=== PATIENT | female | born 1945 | race Two or more races ===

== ENCOUNTER 2019-09-29 11:15 | Emergency (ER) | payer OTHER ==
[~2019-09-29] VITALS: Ht 157.5 cm; Wt 71.7 kg
[~2019-09-29 11:15] MED LIST: VASOTEC10 MG
[2019-09-29] MEDS ORDERED: LEVOXYL25 MCG (11:25)
[2019-09-29] MEDS ORDERED: LEVAQUIN500 MG PO (15:57)
== END 2019-09-29 16:06 | disposition home or self-care (01) ==
LOC: ER 11:15
DX: B34.9 Viral infection, unspecified (principal); E06.1 Subacute thyroiditis; Z03.818 Encounter for observation for suspected exposure to other biological agents ruled out; R07.0 Pain in throat

== ENCOUNTER → 2019-10-02 07:02 | Outpatient (CLI) | payer OTHER ==
[~2019-10-02 07:02] MED LIST changes: +LEVAQUIN500 MG PO; +LEVOXYL25 MCG
== END | disposition home or self-care (01) ==
LOC: LAB 07:02
PROVIDERS: ATTEND General Practice
DX: E06.0 Acute thyroiditis (principal); E78.49 Other hyperlipidemia; E55.9 Vitamin D deficiency, unspecified

== ENCOUNTER 2019-10-05 10:35 | Outpatient (CLI) | payer OTHER | END 2019-10-05 10:43 | disposition home or self-care (01) | LOC: SONOGRAMA 10:35 → MAMO-SONO 10-07 08:15 | PROVIDERS: ATTEND General Practice | DX: E06.0 Acute thyroiditis (principal) ==

== ENCOUNTER 2019-11-25 11:06 | Outpatient (CLI) | payer OTHER | END 2019-11-25 15:00 | disposition home or self-care (01) | LOC: LAB 11:06 | PROVIDERS: ATTEND Internal Medicine Cardiovascular Disease | DX: E03.8 Other specified hypothyroidism (principal); I10 Essential (primary) hypertension; E11.9 Type 2 diabetes mellitus without complications; E78.2 Mixed hyperlipidemia; Z12.11 Encounter for screening for malignant neoplasm of colon ==

== ENCOUNTER → 2019-11-30 10:40 | Outpatient (CLI) | payer OTHER | END | disposition home or self-care (01) | LOC: LAB 10:40 | PROVIDERS: ATTEND Internal Medicine Cardiovascular Disease | DX: E11.9 Type 2 diabetes mellitus without complications (principal); E78.2 Mixed hyperlipidemia; I10 Essential (primary) hypertension; E03.8 Other specified hypothyroidism; Z12.11 Encounter for screening for malignant neoplasm of colon ==

== ENCOUNTER 2020-01-14 09:30 | Outpatient (CLI) | payer OTHER | END 2020-01-14 09:37 | disposition home or self-care (01) | LOC: LAB 09:30 | PROVIDERS: ATTEND Internal Medicine Cardiovascular Disease | DX: E03.8 Other specified hypothyroidism (principal); E78.2 Mixed hyperlipidemia ==

== ENCOUNTER → 2020-03-23 08:59 | Outpatient (CLI) | payer OTHER | END | disposition home or self-care (01) | LOC: LAB 08:59 | PROVIDERS: ATTEND Internal Medicine Cardiovascular Disease | DX: E03.8 Other specified hypothyroidism (principal); M12.812 Other specific arthropathies, not elsewhere classified, left shoulder; J44.9 Chronic obstructive pulmonary disease, unspecified; I10 Essential (primary) hypertension; E11.9 Type 2 diabetes mellitus without complications; E78.2 Mixed hyperlipidemia ==

== ENCOUNTER → 2020-03-28 | Outpatient (CLI) | payer OTHER | END | disposition home or self-care (01) | LOC: MAMO-SONO 09:27 | PROVIDERS: ATTEND Internal Medicine Cardiovascular Disease | DX: M12.812 Other specific arthropathies, not elsewhere classified, left shoulder (principal); N63.11 Unspecified lump in the right breast, upper outer quadrant ==

== ENCOUNTER 2020-03-29 09:18 | Outpatient (CLI) | payer OTHER | END 2020-03-29 10:41 | disposition home or self-care (01) | LOC: SONOGRAMA 09:18 | PROVIDERS: ATTEND Internal Medicine Cardiovascular Disease | DX: M12.812 Other specific arthropathies, not elsewhere classified, left shoulder (principal) ==

== ENCOUNTER 2020-11-29 10:21 | Outpatient (CLI) | payer OTHER | END 2020-11-29 10:26 | disposition home or self-care (01) | LOC: RAD 10:21 | PROVIDERS: ATTEND General Practice | DX: M51.37 Other intervertebral disc degeneration, lumbosacral region (principal); M54.5 Low back pain ==

== ENCOUNTER → 2020-12-26 | Outpatient (CLI) | payer OTHER | END | disposition home or self-care (01) | LOC: NUCLEAR 13:55 | PROVIDERS: ATTEND General Practice | DX: M81.0 Age-related osteoporosis without current pathological fracture (principal) ==

== ENCOUNTER 2021-04-27 10:29 | Outpatient (CLI) | payer OTHER | END 2021-04-27 10:36 | disposition home or self-care (01) | LOC: LAB 10:29 | PROVIDERS: ATTEND General Practice | DX: D50.0 Iron deficiency anemia secondary to blood loss (chronic) (principal); N39.0 Urinary tract infection, site not specified; B96.29 Other Escherichia coli [E. coli] as the cause of diseases classified elsewhere; E11.21 Type 2 diabetes mellitus with diabetic nephropathy; I10 Essential (primary) hypertension; E03.4 Atrophy of thyroid (acquired); E78.2 Mixed hyperlipidemia; K62.5 Hemorrhage of anus and rectum; R10.84 Generalized abdominal pain; I48.0 Paroxysmal atrial fibrillation; A63.0 Anogenital (venereal) warts ==

== ENCOUNTER 2021-04-27 11:43 | Outpatient (CLI) | payer OTHER | END 2021-04-27 11:46 | disposition home or self-care (01) | LOC: RAD 11:43 | PROVIDERS: ATTEND General Practice | DX: M19.90 Unspecified osteoarthritis, unspecified site (principal) ==

== ENCOUNTER 2021-05-25 12:01 | Outpatient (CLI) | payer OTHER | END 2021-05-25 12:06 | disposition home or self-care (01) | LOC: RAD 12:01 | PROVIDERS: ATTEND Chiropractor | DX: M99.01 Segmental and somatic dysfunction of cervical region (principal); M99.02 Segmental and somatic dysfunction of thoracic region; M99.03 Segmental and somatic dysfunction of lumbar region; M99.05 Segmental and somatic dysfunction of pelvic region ==

== ENCOUNTER 2021-06-01 11:30 | Outpatient (CLI) | payer OTHER | END 2021-06-01 11:36 | disposition home or self-care (01) | LOC: MAMO-SONO 11:30 | PROVIDERS: ATTEND General Practice | DX: Z12.31 Encounter for screening mammogram for malignant neoplasm of breast (principal) ==

== ENCOUNTER 2021-06-19 11:16 | Outpatient (CLI) | payer OTHER | END 2021-06-19 11:22 | disposition home or self-care (01) | LOC: SONOGRAMA 11:16 | PROVIDERS: ATTEND General Practice | DX: N63.0 Unspecified lump in unspecified breast (principal) ==

== ENCOUNTER 2021-07-08 11:24 | Emergency (ER) | payer OTHER ==
[~2021-07-08] VITALS: Ht 157.5 cm; Wt 67.1 kg
[2021-07-08] MEDS ORDERED: SERTRALINE HCL50 MG PO (11:57)
[2021-07-08] MEDS ORDERED: LOSARTAN POTASS50 MG PO (11:57)
[2021-07-08] MEDS ORDERED: NAPROXEN500 MG PO (11:57)
[2021-07-08] MEDS ORDERED: TIZANIDINE HCL4 MG PO (11:57)
== END 2021-07-08 18:19 | disposition home or self-care (01) ==
LOC: ER 11:24
DX: K57.92 Diverticulitis of intestine, part unspecified, without perforation or abscess without bleeding (principal); Z88.0 Allergy status to penicillin

== ENCOUNTER 2021-08-16 13:32 | Emergency (ER) | payer OTHER ==
[~2021-08-16] VITALS: Ht 154.9 cm; Wt 71.7 kg
[~2021-08-16 13:32] MED LIST changes: +LOSARTAN POTASS50 MG PO; +NAPROXEN500 MG PO; +SERTRALINE HCL50 MG PO; +TIZANIDINE HCL4 MG PO
== END 2021-08-16 20:38 | disposition home or self-care (01) ==
LOC: ER 13:32
DX: K57.32 Diverticulitis of large intestine without perforation or abscess without bleeding (principal); Z88.0 Allergy status to penicillin; I10 Essential (primary) hypertension; E78.00 Pure hypercholesterolemia, unspecified

== ENCOUNTER 2021-12-12 09:55 | Outpatient (CLI) | payer OTHER | END 2021-12-12 15:00 | disposition home or self-care (01) | LOC: LAB 09:55 | PROVIDERS: ATTEND General Practice | DX: D50.0 Iron deficiency anemia secondary to blood loss (chronic) (principal); N39.0 Urinary tract infection, site not specified; B96.29 Other Escherichia coli [E. coli] as the cause of diseases classified elsewhere; E11.21 Type 2 diabetes mellitus with diabetic nephropathy; I10 Essential (primary) hypertension; E03.4 Atrophy of thyroid (acquired); E78.2 Mixed hyperlipidemia; K62.5 Hemorrhage of anus and rectum; R10.84 Generalized abdominal pain; I48.0 Paroxysmal atrial fibrillation; A63.0 Anogenital (venereal) warts ==

== ENCOUNTER 2021-12-12 10:54 | Outpatient (CLI) | payer OTHER | END 2021-12-12 11:07 | disposition home or self-care (01) | LOC: RAD 10:54 | PROVIDERS: ATTEND General Practice | DX: M19.90 Unspecified osteoarthritis, unspecified site (principal) ==

== ENCOUNTER 2021-12-19 09:33 | Outpatient (CLI) | payer OTHER | END 2021-12-19 09:35 | disposition home or self-care (01) | LOC: NUCLEAR 09:33 | PROVIDERS: ATTEND Internal Medicine Cardiovascular Disease | DX: I11.9 Hypertensive heart disease without heart failure (principal); N06.2 Isolated proteinuria with diffuse membranous glomerulonephritis; Z88.0 Allergy status to penicillin ==

== ENCOUNTER 2022-01-26 10:45 | Outpatient (CLI) | payer OTHER | END 2022-01-26 10:48 | disposition home or self-care (01) | LOC: NUCLEAR 10:45 | PROVIDERS: ATTEND Internal Medicine Cardiovascular Disease | DX: I65.29 Occlusion and stenosis of unspecified carotid artery (principal); Z88.0 Allergy status to penicillin ==

== ENCOUNTER 2022-08-16 11:50 | Outpatient (CLI) | payer OTHER | END 2022-08-16 11:57 | disposition home or self-care (01) | LOC: RAD 11:50 | DX: R06.02 Shortness of breath (principal); J45.30 Mild persistent asthma, uncomplicated ==

== ENCOUNTER 2022-08-30 10:42 | Outpatient (CLI) | payer OTHER | END 2022-08-30 10:51 | disposition home or self-care (01) | LOC: RAD 10:42 | DX: M19.90 Unspecified osteoarthritis, unspecified site (principal) ==

== ENCOUNTER 2022-10-26 10:02 | Outpatient (CLI) | payer OTHER | END 2022-10-26 10:07 | disposition home or self-care (01) | LOC: SONOGRAMA 10:02 | DX: M75.81 Other shoulder lesions, right shoulder (principal); M75.82 Other shoulder lesions, left shoulder ==

== ENCOUNTER 2023-01-22 10:19 | Outpatient (CLI) | payer OTHER | END 2023-01-22 10:26 | disposition home or self-care (01) | LOC: SONOGRAMA 10:19 | DX: R22.1 Localized swelling, mass and lump, neck (principal); E03.9 Hypothyroidism, unspecified; Z88.0 Allergy status to penicillin ==

== ENCOUNTER 2023-01-28 09:30 | Outpatient (CLI) | payer OTHER ==
[2023-01-28 10:06] LABS: PH,URINE 5.5 (5.0-8.0); URINE APPEARANCE Clear; URINE BILIRRUBIN Negative (NEGATIVE); URINE BLOOD Negative; URINE COLOR Yellow; URINE GLUCOSE Negative (NEGATIVE); URINE LEUKOCYTE Moderate; URINE NITRATE Negative; URINE PROTEIN Negative (NEGATIVE); URINE UROBILINOGEN 0.2 E.U./dl
[2023-01-28 10:07] LABS: URINE BACTERIA 30.2 uL (0.0-1933); URINE EPITHELIAL CELLS 7.5 uL (0.0-38.8); URINE RBC 8.4 uL (0.0-20.8); URINE WBC 11.2 uL (0.0-23.2)
[2023-01-28 10:23] LABS: HEMATOCRIT 43.5 % (36.0-45.00); HEMOGLOBIN 14.5 g/dL (12.0-15.00); MEAN CORPUSCULAR HEMOGLOBIN 28.9 pg (27.00-32.0); MEAN CORPUSCULAR HGB CONC 33.3 g/dl (32.0-36.0); PLATELET COUNT 249 K/uL (150-450)
[2023-01-28 10:59] LABS: ALBUMIN 3.8 gm/dL (3.4-5.0); BILIRUBIN TOTAL 0.58 mg/dL (0.3-1.2); CALCIUM 9.4 mg/dL (8.5-10.1); CHOL HDL RATIO 3.6 (0-5.0); CREATININE SERUM 0.77 mg/dL (0.55-1.02); GFR 73.08; POTASSIUM 4.18 mEq/L (3.5-5.1); TOTAL PROTEIN 6.8 gm/dL (6.4-8.2); TSH 2.26 uIU/mL (0.358-3.74)
== END 2023-01-28 09:34 | disposition home or self-care (01) ==
LOC: LAB 09:30
PROVIDERS: ATTEND General Practice
DX: N39.0 Urinary tract infection, site not specified (principal); E11.21 Type 2 diabetes mellitus with diabetic nephropathy; I10 Essential (primary) hypertension; E03.4 Atrophy of thyroid (acquired); E78.2 Mixed hyperlipidemia; K62.5 Hemorrhage of anus and rectum; R10.84 Generalized abdominal pain; I48.0 Paroxysmal atrial fibrillation; D68.9 Coagulation defect, unspecified; A63.0 Anogenital (venereal) warts; Z88.0 Allergy status to penicillin

== ENCOUNTER 2023-02-05 07:18 | Outpatient (CLI) | payer OTHER | END 2023-02-05 07:19 | disposition home or self-care (01) | LOC: NUCLEAR 07:18 | PROVIDERS: ATTEND Internal Medicine Cardiovascular Disease | DX: I20.9 Angina pectoris, unspecified (principal); M81.0 Age-related osteoporosis without current pathological fracture | CPT/HCPCS: 78452; 93017; A9500; J0153 ==

== ENCOUNTER → 2023-06-18 09:06 | Outpatient (CLI) | payer OTHER ==
[2023-06-18 09:39] LABS: PH,URINE 5.5 (5.0-8.0); URINE APPEARANCE Clear; URINE BILIRRUBIN Negative (NEGATIVE); URINE BLOOD Negative; URINE COLOR Yellow; URINE GLUCOSE Negative (NEGATIVE); URINE LEUKOCYTE Negative; URINE NITRATE Negative; URINE PROTEIN Negative (NEGATIVE); URINE UROBILINOGEN 0.2 E.U./dl
[2023-06-18 09:43] LABS: URINE EPITHELIAL CELLS 1.8 uL (0.0-38.8); URINE RBC 3.3 uL (0.0-20.8)
[2023-06-18 09:46] LABS: URINE BACTERIA 2.5 uL (0.0-1933); URINE WBC 0.9 uL (0.0-23.2)
[2023-06-18 09:51] LABS: HEMATOCRIT 39.4 % (36.0-45.00); HEMOGLOBIN 13.7 g/dL (12.0-15.00); MEAN CELL VOLUME 84.4 fL (80.00-100.00); MEAN CORPUSCULAR HEMOGLOBIN 29.2 pg (27.00-32.0); MEAN CORPUSCULAR HGB CONC 34.6 g/dl (32.0-36.0); PLATELET COUNT 224 K/uL (150-450); RED BLOOD COUNT 4.67 M/uL (4.00-6.00); RED CELL DISTRIBUTION WIDTH 13.5 % (11.5-14.5)
[2023-06-18 10:25] LABS: ALBUMIN 3.8 gm/dL (3.4-5.0); BILIRUBIN TOTAL 0.55 mg/dL (0.3-1.2); CALCIUM 9.2 mg/dL (8.5-10.1); CHOL HDL RATIO 3.2 (0-5.0); CREATININE SERUM 0.7 mg/dL (0.55-1.02); GFR 81.36; GLOBULINA 2.6 G/DL (2.4-3.5); POTASSIUM 4.11 mEq/L (3.5-5.1); TOTAL PROTEIN 6.4 gm/dL (6.4-8.2); TSH 2.25 uIU/mL (0.358-3.74)
== END | disposition home or self-care (01) ==
LOC: LAB 09:06
PROVIDERS: ATTEND Internal Medicine Cardiovascular Disease
DX: D50.0 Iron deficiency anemia secondary to blood loss (chronic) (principal); N39.0 Urinary tract infection, site not specified; I10 Essential (primary) hypertension; E03.4 Atrophy of thyroid (acquired); E78.2 Mixed hyperlipidemia; Z12.11 Encounter for screening for malignant neoplasm of colon; K62.5 Hemorrhage of anus and rectum; E11.21 Type 2 diabetes mellitus with diabetic nephropathy; A63.0 Anogenital (venereal) warts; N25.81 Secondary hyperparathyroidism of renal origin

== ENCOUNTER → 2023-06-24 10:42 | Outpatient (CLI) | payer OTHER ==
[2023-06-24 13:31] LABS: ob NEGATIVE (NEGATIVE)
== END | disposition home or self-care (01) ==
LOC: LAB 10:42
DX: D50.0 Iron deficiency anemia secondary to blood loss (chronic) (principal); N39.0 Urinary tract infection, site not specified; E11.21 Type 2 diabetes mellitus with diabetic nephropathy; I10 Essential (primary) hypertension; E03.4 Atrophy of thyroid (acquired); E78.2 Mixed hyperlipidemia; K62.5 Hemorrhage of anus and rectum; Z12.11 Encounter for screening for malignant neoplasm of colon; R10.84 Generalized abdominal pain; I48.0 Paroxysmal atrial fibrillation; D68.9 Coagulation defect, unspecified; A63.0 Anogenital (venereal) warts; N25.81 Secondary hyperparathyroidism of renal origin

== ENCOUNTER 2023-10-03 09:25 | Outpatient (CLI) | payer OTHER | END 2023-10-03 09:29 | disposition home or self-care (01) | LOC: SONOGRAMA 09:25 | PROVIDERS: ATTEND General Practice | DX: M75.121 Complete rotator cuff tear or rupture of right shoulder, not specified as traumatic (principal); M75.102 Unspecified rotator cuff tear or rupture of left shoulder, not specified as traumatic ==

== ENCOUNTER 2023-10-22 09:47 | Outpatient (CLI) | payer OTHER ==
[2023-10-22 10:30] LABS: URINE APPEARANCE Clear; URINE BILIRRUBIN Negative (NEGATIVE); URINE BLOOD Negative; URINE COLOR Yellow; URINE GLUCOSE Negative (NEGATIVE); URINE LEUKOCYTE Moderate; URINE NITRATE Negative; URINE PROTEIN Negative (NEGATIVE); URINE UROBILINOGEN 0.2 E.U./dl
[2023-10-22 10:34] LABS: URINE BACTERIA 685.3 uL (0.0-1933); URINE EPITHELIAL CELLS 36.3 uL (0.0-38.8); URINE RBC 4.7 uL (0.0-20.8); URINE WBC 60.1 uL (0.0-23.2)
== END 2023-10-22 09:48 | disposition home or self-care (01) ==
LOC: LAB 09:47
PROVIDERS: ATTEND General Practice
DX: E78.2 Mixed hyperlipidemia (principal); B96.4 Proteus (mirabilis) (morganii) as the cause of diseases classified elsewhere

== ENCOUNTER 2023-12-31 09:46 | Outpatient (CLI) | payer OTHER | END 2023-12-31 09:57 | disposition home or self-care (01) | LOC: SONOGRAMA 09:46 | DX: M75.81 Other shoulder lesions, right shoulder (principal); M25.561 Pain in right knee; M25.562 Pain in left knee ==

== ENCOUNTER → 2024-02-05 09:38 | Outpatient (CLI) | payer OTHER ==
[2024-02-05 09:58] LABS: HEMATOCRIT 42.1 % (36.0-45.00); HEMOGLOBIN 14.6 g/dL (12.0-15.00); MEAN CELL VOLUME 86.4 fL (80.00-100.00); MEAN CORPUSCULAR HEMOGLOBIN 29.9 pg (27.00-32.0); MEAN CORPUSCULAR HGB CONC 34.7 g/dl (32.0-36.0); PLATELET COUNT 252 K/uL (150-450); RED BLOOD COUNT 4.87 M/uL (4.00-6.00); RED CELL DISTRIBUTION WIDTH 13.3 % (11.5-14.5)
[2024-02-05 11:02] LABS: ALBUMIN 3.9 gm/dL (3.4-5.0); BILIRUBIN TOTAL 0.57 mg/dL (0.3-1.2); CALCIUM 9.3 mg/dL (8.5-10.1); CHOL HDL RATIO 3.5 (0-5.0); CREATININE SERUM 0.68 mg/dL (0.55-1.02); GFR 84.12; GLOBULINA 2.8 G/DL (2.4-3.5); POTASSIUM 4.63 mEq/L (3.5-5.1); TOTAL PROTEIN 6.7 gm/dL (6.4-8.2); TSH 1.19 uIU/mL (0.358-3.74)
== END | disposition home or self-care (01) ==
LOC: LAB 09:38
PROVIDERS: ATTEND Internal Medicine
DX: I11.9 Hypertensive heart disease without heart failure (principal); E78.2 Mixed hyperlipidemia; E11.9 Type 2 diabetes mellitus without complications; E03.9 Hypothyroidism, unspecified

== ENCOUNTER 2024-03-19 09:39 | Emergency (ER) | payer OTHER ==
[~2024-03-19] VITALS: Ht 165.1 cm; Wt 76.2 kg
[2024-03-19] MEDS ORDERED: KETOROLAC TROMETHAMINE 60 MG VIAL IM ONE (10:00)
[2024-03-19] MEDS ORDERED: ZOVIRAX800 MG PO (10:03)
[2024-03-19] MEDS ORDERED: NEURONTIN300 MG PO (10:03)
== END 2024-03-19 10:22 | disposition home or self-care (01) ==
LOC: ER 09:41
DX: B02.9 Zoster without complications (principal); M54.9 Dorsalgia, unspecified; I10 Essential (primary) hypertension; E03.8 Other specified hypothyroidism; Z88.0 Allergy status to penicillin
CPT/HCPCS: 96372; 99282; J1885

== ENCOUNTER 2024-03-19 11:45 | Outpatient (CLI) | payer OTHER ==
[~2024-03-19 11:45] MED LIST changes: +NEURONTIN300 MG PO; +ZOVIRAX800 MG PO
== END 2024-03-19 11:51 | disposition home or self-care (01) ==
LOC: RAD 11:45
PROVIDERS: ATTEND Internal Medicine Pulmonary Disease
DX: J45.30 Mild persistent asthma, uncomplicated (principal)

== ENCOUNTER 2024-04-14 09:25 | Outpatient (CLI) | payer OTHER ==
[2024-04-14 11:51] LABS: ALBUMIN 3.9 gm/dL (3.4-5.0); BILIRUBIN TOTAL 0.48 mg/dL (0.3-1.2); CALCIUM 9.7 mg/dL (8.5-10.1); CHOL HDL RATIO 2.5 (0-5.0); CREATININE SERUM 0.78 mg/dL (0.55-1.02); GFR 71.81; GLOBULINA 2.7 G/DL (2.4-3.5); POTASSIUM 5.37 mEq/L (3.5-5.1); TOTAL PROTEIN 6.6 gm/dL (6.4-8.2)
== END 2024-04-14 09:26 | disposition home or self-care (01) ==
LOC: LAB 09:25
PROVIDERS: ATTEND Internal Medicine
DX: E78.2 Mixed hyperlipidemia (principal); K76.0 Fatty (change of) liver, not elsewhere classified; R74.01 Elevation of levels of liver transaminase levels

== ENCOUNTER 2024-08-05 10:28 | Outpatient (CLI) | payer OTHER ==
[2024-08-05 11:13] LABS: HEMATOCRIT 43.6 % (36.0-45.00); HEMOGLOBIN 14.5 g/dL (12.0-15.00); MEAN CORPUSCULAR HEMOGLOBIN 28.7 pg (27.00-32.0); MEAN CORPUSCULAR HGB CONC 33.4 g/dl (32.0-36.0); PLATELET COUNT 238 K/uL (150-450); RED BLOOD COUNT 5.07 M/uL (4.00-6.00); RED CELL DISTRIBUTION WIDTH 13.2 % (11.5-14.5)
[2024-08-05 12:24] LABS: ALBUMIN 4.1 gm/dL (3.4-5.0); BILIRUBIN TOTAL 0.66 mg/dL (0.3-1.2); CALCIUM 9.5 mg/dL (8.5-10.1); CHOL HDL RATIO 2.2 (0-5.0); CREATININE SERUM 0.7 mg/dL (0.55-1.02); GFR 81.14; GLOBULINA 2.6 G/DL (2.4-3.5); POTASSIUM 4.14 mEq/L (3.5-5.1); TOTAL PROTEIN 6.7 gm/dL (6.4-8.2)
== END 2024-08-05 10:39 | disposition home or self-care (01) ==
LOC: LAB 10:28
PROVIDERS: ATTEND Internal Medicine
DX: E78.2 Mixed hyperlipidemia (principal); I65.29 Occlusion and stenosis of unspecified carotid artery; I25.10 Atherosclerotic heart disease of native coronary artery without angina pectoris

== ENCOUNTER → 2024-09-15 08:42 | Outpatient (CLI) | payer OTHER | END | disposition home or self-care (01) | LOC: LAB 08:42 | PROVIDERS: ATTEND General Practice | DX: E03.4 Atrophy of thyroid (acquired) (principal) ==

== ENCOUNTER 2024-09-15 09:11 | Outpatient (CLI) | payer OTHER | END 2024-09-15 09:18 | disposition home or self-care (01) | LOC: RAD 09:11 | PROVIDERS: ATTEND Physical Medicine & Rehabilitation | DX: M54.32 Sciatica, left side (principal); M54.17 Radiculopathy, lumbosacral region ==

== ENCOUNTER → 2024-12-18 11:20 | Outpatient (CLI) | payer OTHER ==
[2024-12-18 12:16] LABS: URINE APPEARANCE Clear; URINE BILIRRUBIN Negative (NEGATIVE); URINE BLOOD Negative; URINE COLOR Yellow; URINE GLUCOSE Negative (NEGATIVE); URINE KETONE Negative (NEGATIVE); URINE LEUKOCYTE Small; URINE NITRATE Negative; URINE PROTEIN Negative (NEGATIVE); URINE UROBILINOGEN 0.2 E.U./dl
[2024-12-18 12:19] LABS: URINE BACTERIA 46.7 uL (0.0-1933); URINE EPITHELIAL CELLS 11.3 uL (0.0-38.8); URINE RBC 4.1 uL (0.0-20.8); URINE WBC 6.4 uL (0.0-23.2)
[2024-12-18 12:27] LABS: URINE CAST 0.00 uL (0.0-1.40)
[2024-12-18 12:39] LABS: BASO % 1.0 % (0.1-1.2); EOS # 0.22 (0.04-0.54); EOS % 4.5 % (0.7-7.0); LYMPH # 1.99 (1.18-3.74); LYMPH % 40.9 % (19.3-53.1); MEAN PLATELET VOLUME 9.80 fl (9.4-12.4); MONO # 0.26 (0.24-0.82); MONO % 5.3 % (4.7-12.5); NEUT # 2.31 (1.56-6.13); NEUT % 47.7 % (34.0-71.1); RED CELL DISTRIBUTION WIDTH 12.6 % (11.6-14.4)
[2024-12-18 12:51] LABS: INR 1.01
[2024-12-18 13:20] LABS: ALT/SGPT 23.0 U/L (12-78); AST/SGOT 19.0 U/L (15-37); BILIRUBIN TOTAL 0.68 mg/dL (0.3-1.2); BUN CREA RATIO 23.0 (7.0-25.0); CHOL HDL RATIO 2.6 (0-5.0); CREATININE SERUM 0.73 mg/dL (0.55-1.02); GFR 77.3; GLOBULINA 2.7 G/DL (2.4-3.5); GLUCOSE FASTING 81.0 mg/dL (65-100); HDL 68.0 mg/dl (40-60); LDL 89.0 mg/dl (0-130); OSMOLALITY SERUM 293.0 MOSM/KG (275-295); TSH 1.32 uIU/mL (0.358-3.74); VLDL 18.0 (0-39)
[2024-12-18 13:50] LABS: CORTISOL 13.62 ug/dl; VITAMIN D3 25 HYDROXY 84.65 ng/ml (30-120)
== END | disposition home or self-care (01) ==
LOC: LAB 11:20
DX: D64.9 Anemia, unspecified (principal); E21.5 Disorder of parathyroid gland, unspecified; D50.0 Iron deficiency anemia secondary to blood loss (chronic); N39.0 Urinary tract infection, site not specified; I10 Essential (primary) hypertension; E03.4 Atrophy of thyroid (acquired); E03.9 Hypothyroidism, unspecified; E78.2 Mixed hyperlipidemia; E78.5 Hyperlipidemia, unspecified; Z12.11 Encounter for screening for malignant neoplasm of colon; E11.69 Type 2 diabetes mellitus with other specified complication; E11.65 Type 2 diabetes mellitus with hyperglycemia; I48.0 Paroxysmal atrial fibrillation; D68.9 Coagulation defect, unspecified; A53.9 Syphilis, unspecified; E11.21 Type 2 diabetes mellitus with diabetic nephropathy; R84.5 Abnormal microbiological findings in specimens from respiratory organs and thorax; D51.9 Vitamin B12 deficiency anemia, unspecified; E55.9 Vitamin D deficiency, unspecified; R87.1 Abnormal level of hormones in specimens from female genital organs; E28.0 Estrogen excess; E27.1 Primary adrenocortical insufficiency

== ENCOUNTER 2025-02-03 13:22 | Outpatient (CLI) | payer OTHER | END 2025-02-03 13:26 | disposition home or self-care (01) | LOC: RAD 13:22 | PROVIDERS: ATTEND General Practice | DX: M19.90 Unspecified osteoarthritis, unspecified site (principal) ==